=== PATIENT | female | born 1985 | race Caucasian/White ===

== ENCOUNTER 2016-05-11 14:30 | Emergency (ER) | payer OTHER ==
[~2016-05-11] VITALS: Ht 172.7 cm; Wt 61.4 kg
[~2016-05-11 14:30] MED LIST: AMPH20CA5 PO; Ibuprofen PO; PREN1TAB80 PO; RANI150T11 PO
[2016-05-11 14:41] VITALS: BP 151/82; PULSE 100; RESP 22; O2SAT 100
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
--- NOTE | 2016-05-11 16:37 | DRSVH ---
PROCEDURE: X-RAY RIGHT SHOULDER, MINIMUM TWO VIEWS ([id number]) INDICATIONS: pain TECHNIQUE: 3 views of the shoulder were acquired. COMPARISON: None. FINDINGS: Bones: No fractures or dislocations. No suspicious bony lesions. Visualized ribs appear intact. Soft tissues: No suspicious soft tissue calcifications. IMPRESSION: No acute fracture. No osseous lesion. If clinical suspicion and/or symptoms persist, fur ther assessment with repeat plainfilms, or advanced imaging (e.g., CT, MRI, or bone scan) may be help ful for further assessment. Dictated by: Kasandra Batres M.D. on 05/11/2016 at 16:36 Approved by: Kasandra Batres M.D. on 05/11/2016 at 16:36
[2016-05-11] MEDS ORDERED: CYCL5TAB PO (17:32)
[2016-05-11] MEDS ORDERED: OXYC1TAB24 PO (17:33)
[2016-05-11 17:37] VITALS: BP 119/83; PULSE 71; RESP 16; O2SAT 96
== END 2016-05-11 17:38 | disposition home or self-care (01) ==
LOC: SED 14:30
DX: S43.401A Unspecified sprain of right shoulder joint, initial encounter (principal); S39.012A Strain of muscle, fascia and tendon of lower back, initial encounter; Y04.8XXA Assault by other bodily force, initial encounter; Y92.009 Unspecified place in unspecified non-institutional (private) residence as the place of occurrence of the external cause; Y93.89 Activity, other specified; Y99.8 Other external cause status; F10.10 Alcohol abuse, uncomplicated
CPT/HCPCS: 73030; 96372; 99284; J1885

== ENCOUNTER 2016-05-19 01:18 | Emergency (ER) | payer OTHER ==
[~2016-05-19] VITALS: Ht 172.7 cm; Wt 61.0 kg
[~2016-05-19 01:18] MED LIST changes: +CYCL5TAB PO; +OXYC1TAB24 PO
[2016-05-19 01:20] VITALS: BP 141/93; PULSE 102; RESP 18; O2SAT 100
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
[2016-05-19] MEDS ORDERED: 0.9% Sodium Chloride 1,000 ML IV ONE (01:33)
[2016-05-19] MEDS ORDERED: Ondansetron 2 mg/mL 2 mL Inj IVPUSH PRN (01:35)
[2016-05-19] MEDS ORDERED: Ketorolac 15 mg/mL Inj IVPUSH ONE (01:35)
[2016-05-19 02:06] LABS: BASOPHILS % (AUTO) 0.5 % (0-3); EOSINOPHILS % (AUTO) 0.2 % (0-5); MONOCYTES % (AUTO) 8.4 % (4-12); Mean Corpuscular Hemoglobin 30.1 pg (27.0-35.0); Mean Corpuscular Volume 88.9 fL (81-100); NEUTROPHILS % (AUTO) 73.1 % (40-74); Platelet Count 284 bil/L (150-400)
[2016-05-19 02:55] LABS: APPEARANCE,URINE CLEAR (CLEAR,HAZY); COLOR,URINE STRAW (YELLOW)
[2016-05-19 02:56] LABS: OCCULT BLOOD,URINE TRACE (NEGATIVE); UROBILINOGEN,URINE NORMAL (NORMAL)
[2016-05-19] MEDS: HYDROmorphone 0.5 mg/0.5 mL iSecure Syringe IVPUSH PRN ×3 (03:03→06:00)
[2016-05-19] MEDS ORDERED: CefOXitin Sodium 1,000 mg Inj IV ONE (05:35)
[2016-05-19] MEDS ORDERED: Cefotetan Inj 2,000 MG in IV Premix 1 EACH IV ONE (05:45)
[2016-05-19 05:55] VITALS: BP 122/83; PULSE 90; RESP 18; O2SAT 100
[2016-05-19] MEDS ORDERED: Doxycycline Inj 100 MG in Dextrose 5% Minibag Plus 100 ML IV ONE (06:30)
[2016-05-19] MEDS ORDERED: ALPRAZolam 0.5 mg Tablet PO ONE (06:40)
[2016-05-19] MEDS ORDERED: AMPH20CA5 PO (07:34)
[2016-05-19] MEDS ORDERED: CITA20TA11 PO (07:35)
--- NOTE | 2016-05-19 08:01 | DRSVH ---
PROCEDURE: CT ABDOMEN AND PELVIS WITH CONTRAST ([id number]) INDICATIONS: right sided abdominal pain, (+) IUD, (-) appendix TECHNIQUE: After the administration of intravenous contrast, 5 mm thick sections acquired from the diaphragm to the symphysis. 5 mm coronal and sagittal reformats were acquired. For radiation dose reduction, the following was used: automated exposure control, adjustment of mA and/or kV according to patient siz e. COMPARISON: [facility], CT, ABD/PELVIS W/CON (PNL), 03/13/2010, 19:13. FINDINGS: Image quality: Excellent. ABDOMEN: Lung bases: Lung bases are clear. Heart size is normal. Solid organs: Liver and spleen are normal in size and enhancement. Gallbladder is normal. Biliary system is non dilated. Pancreas enhances normally. No adrenal nodules. Kidneys demonstrate normal size and enhancement, without hydronephrosis. Peritoneum and bowel: Appendix is not identified. There is no inflammatory stranding in the right lo wer quadrant. Bowel loops demonstrate normal caliber. There are thickening in several jejunal loops i n left upper quadrant. No free fluid or air. Nodes and vessels: No retroperitoneal or mesenteric adenopathy by size criteria. Aorta and inferior vena cava are normal in size. Miscellaneous: No ventral hernias. PELVIS: Genitourinary: Bladder wall thickness is normal. There is a 2.4 x 3.7 cm left ovarian cyst. An IUD is present Miscellaneous: No inguinal hernias or adenopathy. Bones: No suspicious bony lesions. No vertebral body compression fractures. IMPRESSION: 1. No CT findings to suggest acute appendicitis. 2. Concentric thickening of several jejunal loops. This finding is nonspecific and may be secondary t o artifact from lack of distention or peristalsis, infectious etiology or inflammatory bowel disease. Recommend clinical correlation and followup. 3. Left ovarian cyst. Followup ultrasound may be considered. Dictated by: Adama Berry M.D. on 05/19/2016 at 7:56 Transcribed by: RACQUEL on 05/19/2016 at 8:00 Approved by: Adama Berry M.D. on 05/19/2016 at 16:05
[2016-05-19] MEDS ORDERED: METR500T PO (08:15)
[2016-05-19] MEDS ORDERED: OXYC1TAB24 PO (08:15)
[2016-05-19] MEDS ORDERED: DOXY-232 PO (08:15)
[2016-05-19] MEDS ORDERED: oxyCODONE-Acetamin 5-325 mg Tablet PO ONE (08:25)
[2016-05-19 08:27] VITALS: BP 120/79; PULSE 86; RESP 12
--- NOTE | 2016-05-19 08:27 | PCM.HPMED ---
Subjective Date of Service May 19, 2016 Primary Provider: Admitting Physician: Primary Care Physician: Michael Holbrook DO Attending Physician: Chief Complaint: "stomach hurts" History of Present Illness: Ms. Osei is a 30 y/o woman who presented to the ED for right upper quadrant pain that started yesterday afternoon. She states that she felt like she had a "stomach bug" for the past week, but the right upper quadrant pain started yesterday. She had generalized abdominal cramping originally. Her RUQ pain is intermittent, severe, and sharp and relieved with pain medication. It felt similar to when her appendix burst. She has not had a bowel movement in 4 days. She had heavy vaginal bleeding a week and a half ago that lasted 10 days. She is no longer having vaginal bleeding. She does not have vaginal discharge. She does not have fever or chills. She has an IUD in place for the past 3 years. She has noticed a foul odor to her urine for the past 6 months. She is currently sexually active with one partner and does not use barrier contraceptive. 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: Age of menarche: 9 y/o History of STIs: HPV History of abnormal Pap smears prior to OB history: (4 terminations) Surgical History appendectomy breast augmentation Social History Hx Alcohol Use: Yes (2-3 drinks every 4-5 days) Hx Substance Use: No (Marijuana use in high school) Hx Tobacco Use: Yes (smoked 5 years - quit 3 weeks ago) Smoking Status: Former Smoker Exam Vital Signs Vital Sign - Last Date Time Temp Pulse Resp B/P Pulse Ox O2 Delivery O2 Flow Rate FiO2 05/19/16 05:55 36.9 90 18 122/83 100 Room Air Intake and Output 05/18/16 05/18/16 05/19/16 Cumulative From/Thru 15:00 23:00 07:00 05/19/16 01:20 - 05/19/16 06:18 Intake Total 1550 ml 1550 ml Balance 1550 ml 1550 ml Intake Oral 500 ml 500 ml IV Total 1050 ml 1050 ml # Voids 2 2 Exam General: No acute distress, well-developed, well-nourished, appropriately interactive Cardiovascular: Regular rate and rhythm with no murmurs, rubs, or gallops appreciated Pulmonary: Clear to auscultation bilaterally with no crackles, wheezes, or rhonchi. Normal respiratory effort with no use of accessory muscles. Abdomen: Bowel tones present. Soft, nontender, nondistended. No hepatosplenomegaly or masses appreciated. Extremities: No clubbing, cyanosis, or edema appreciated. Neurological: Cranial nerves grossly intact. Psychiatric: Normal mood and affect. Alert and oriented to person, place, and time. Lab and Diagnostics Result Diagram: 05/19/1615405/19/16154 X-Rays, CTs and MRIs Impression: Loops of fluid-filled small vowel, some of which ae thickened in the proper clincial setting an enteritis should be considered. at 0330. Amendment: Intrauterine device in satisfactory position. Boggy appearing uterus with edema in the adnexa. There is also tubular fluid- filled structures in the adnexa which may represent hydro- or pyosalpinx. In the proper clincical setting, pelvic inflammatory disease should be considered. at 0337. Study type: Abdominal CT IV contrast Assessment & Plan 1. Pelvic inflammatory disease, acute. -Based on findings of CT abdomen and pelvis as above -IUD is in place -Pt is afebrile and no elevated WBC. -Pt received a dose of cefotetan in the ED -Discharge pt to home -Continue doxycycline 100 mg BID for 14 days and metronidazole 500 mg BID for 14 days as an outpatient -Follow up with [facility] in 2 weeks and follow up with PCP in 1-2 weeks Attending Statement The patient was seen and examined together with Dr. Carol Ramirez DO on 2016 and I agree with the history, exam and plan as outlined in the note above. Carol Ramirez DO May 19, 2016 08:27 Dionisio Blas MD May 19, 2016 17:17
[2016-05-19 09:16] VITALS: BP 120/79; PULSE 86; RESP 12; O2SAT 100
== END 2016-05-19 08:45 | disposition home or self-care (01) ==
LOC: SED 01:18
DX: N73.9 Female pelvic inflammatory disease, unspecified (principal); Z87.891 Personal history of nicotine dependence; Z97.5 Presence of (intrauterine) contraceptive device
CPT/HCPCS: 36415; 74177; 80053; 81000; 81025; 83690; 83735; 85025; 87086; 87088; 96365; 96375; 96376; 99285; J1170; J1885; J2405; J7030; Q9967